=== PATIENT | male | born 1990 | race Caucasian/White ===

== ENCOUNTER 2016-07-28 22:49 | Emergency (ER) | payer OTHER ==
[~2016-07-28] VITALS: Ht 175.3 cm; Wt 145.6 kg
[2016-07-28 22:55] VITALS: BP 146/84
--- NOTE | 2016-07-28 23:28 | NUR ---
PT TAKEN TO BED 7
--- NOTE | 2016-07-28 23:28 | NUR ---
25 Y/O HERE C/O LOWER ABD PAIN, N/V AND DIARRHEA X 1 DAY. DENIES PAIN WHILE LYING DOWN, STATES PAIN BECOMES PRESENT WHILE AMBULATING. NO S/S OF DISTRESS NOTED AT THIS MOMENT.
--- NOTE | 2016-07-28 23:44 | NUR ---
Dr. Amador evaluating patient at bedside.
[2016-07-28] MEDS ORDERED: NACL 0.9% 1,000 ML IV SCH (23:46)
[2016-07-28] MEDS ORDERED: MORPHINE SULFATE 4 MG/ML SYR IVP ONE (23:50)
[2016-07-28] MEDS ORDERED: ONDANSETRON 4 MG/2 ML VIAL IVP ONE (23:50)
--- NOTE | 2016-07-29 01:07 | NUR ---
PT TAKEN TO CT SCAN
--- NOTE | 2016-07-29 01:25 | NUR ---
PT RETURN FROM CT
[2016-07-29 03:03] VITALS: BP 107/68
--- NOTE | 2016-07-29 03:03 | NUR ---
Patient discharged with v/s stable. Written and verbal after care instructions given and explained. Patient alert, oriented and verbalized understanding of instructions. Ambulatory with steady gait. All questions addressed prior to discharge. ID band removed. Patient advised to follow up with PMD. Rx of ZOFRAN AND NORCO given. Patient educated on indication of medication including possible reaction and side effects. Opportunity to ask questions provided and answered.
== END 2016-07-29 03:03 | disposition home or self-care (01) ==
LOC: MED 22:49
DX: R11.10 Vomiting, unspecified (principal); R10.31 Right lower quadrant pain; Z88.5 Allergy status to narcotic agent; E66.9 Obesity, unspecified; Z68.42 Body mass index [BMI] 45.0-49.9, adult
CPT/HCPCS: 36415; 74177; 80053; 81001; 82150; 83690; 85025; 96361; 96374; 96375; 99285; J2270; J2405; J7030; Q9967